=== PATIENT | male | born 1990 | race African-American/Black ===

== ENCOUNTER 2022-09-12 16:06 | Emergency (ER) | payer MEDICAID ==
[~2022-09-12] VITALS: Ht 200.7 cm; Wt 113.0 kg
[2022-09-12] MEDS ORDERED: OXYCODONE HCL/ACETAMINOPHEN 5/325MG TABLET PO ONE (16:45)
[2022-09-12] MEDS ORDERED: TETANUS AND DIPHTHERIA TOX/PF 0.5ML SYR (ADULT) IM ONE (16:45)
[2022-09-12] MEDS ORDERED: TETANUS, DIPHTHERIA, PERTUSSIS VAC/PF 0.5ML (>10YR OLD) IM ONE (17:00)
[2022-09-12] MEDS ORDERED: OXYCODONE HCL/ACETAMINOPHEN 5/325MG TABLET PO NR (17:00)
[2022-09-12 17:25] VITALS: BP 149/82
[2022-09-12] MEDS ORDERED: OXYC-100 MT (18:56)
[2022-09-12] MEDS ORDERED: AMOX1TAB16 MT (20:36)
== END 2022-09-12 19:17 | disposition home or self-care (01) ==
LOC: ER 16:06
DX: S01.81XA Laceration without foreign body of other part of head, initial encounter (principal); X58.XXXA Exposure to other specified factors, initial encounter; Y93.H3 Activity, building and construction; Y92.018 Other place in single-family (private) house as the place of occurrence of the external cause
CPT/HCPCS: 12011; 70450; 70486; 90471; 90715; 99291; Z7610; 90714

== ENCOUNTER 2022-09-16 12:50 | Emergency (ER) | payer MEDICAID ==
[~2022-09-16] VITALS: Ht 200.7 cm; Wt 109.0 kg
[~2022-09-16 12:50] MED LIST: AMOX1TAB16 MT; OXYC-100 MT
[2022-09-16 13:01] VITALS: BP 145/53
== END 2022-09-16 17:32 | disposition left against medical advice (07) ==
LOC: ER 12:50
DX: Z48.00 Encounter for change or removal of nonsurgical wound dressing (principal); R22.0 Localized swelling, mass and lump, head
CPT/HCPCS: 99281